=== PATIENT | female | born 1960 | race Caucasian/White ===

== ENCOUNTER → 2017-01-14 | Outpatient (CLI) | payer OTHER ==
[2015-05-31 11:05] VITALS: BP 156/82
--- NOTE | 2017-01-14 13:57 | RAD ---
DATE: January 14, 2017 EXAM: DIGITAL DIAGNOSTIC BILATERAL, SONOGRAPHY BREAST LEFT HISTORY: Palpable left breast lump for years. COMPARISON: November 20, 2010 This study was interpreted with the benefit of Computerized Aided Detection (CAD). FINDINGS: The breast parenchyma is primarily fatty replaced. There are no dominant suspicious masses, suspicious microcalcifications or evidence of architectural distortion. A metallic BB is placed on the medial aspect of the left breast just superior to the nipple line to sean the palpable lump as indicated by the patient. No focal mammographic abnormality is seen here. LEFT BREAST SONOGRAPHY: High-resolution sonography of the palpable lump as indicated by patient at the 10:00 position 8 cm from nipple was performed. No focal sonographic abnormality of the left breast is seen. There is a rib in this area which the patient may be feeling. IMPRESSION: No radiographic indicators for malignancy. Palpable lump may represent underlying rib. BI-RADS CATEGORY: 1 NEGATIVE RECOMMENDED FOLLOW-UP: 12M 12 MONTH FOLLOW-UP PQRS compliance statement: Patient information was entered into a reminder system with a target due date January 15, 2018 for the next mammogram. Mammography is a sensitive method for finding small breast cancers, but it does not detect them all and is not a substitute for careful clinical examination. A negative mammogram does not negate a clinically suspicious finding and should not result in delay in biopsying a clinically suspicious abnormality. "Our facility is accredited by the [employer] Mammography Program." The patient's breast density may affect the ability of mammography to detect breast cancer. There are 4 categories of breast density, A, B, C and D. Breast density A means that most of the breast tissue is replaced with adipose tissue and therefore is not dense. Breast density B means that the breast tissue is mildly dense and scattered. Breast density C means that the breast tissue is heterogeneously dense. Breast density D means that the breast tissue is very dense. Breast densities especially C and D may decrease the sensitivity of mammography to detect breast cancer. Therefore, the patient may benefit from 3-D breast mammography (3D breast tomography) as a part of their screening mammogram. Insurance may or may not pay for this additional imaging. The patient's breast density based on today's mammogram is category A.
== END | disposition home or self-care (01) ==
LOC: MAMMO 12:40
PROVIDERS: ATTEND Family Medicine
DX: N63 Unspecified lump in breast (principal)
CPT/HCPCS: 76641; G0204; 77066

== ENCOUNTER 2020-02-04 11:39 | Observation (INO) | payer OTHER ==
[~2020-02-04] VITALS: Ht 152.4 cm; Wt 68.9 kg
[2020-02-04] MEDS ORDERED: fentaNYL PF VIAL 100 MCG/2 ML VIAL IV ONE ×2 (12:15→14:30)
[2020-02-04] MEDS ORDERED: ONDANSETRON PF 4 MG/2 ML VIAL. IV ONE (12:15)
[2020-02-04 12:39] LABS: BASO # 0.1 x10^3/uL (0.0-0.2); BASO % 1 % (0-3); EOS # 0.2 x10^3/uL (0.0-0.7); EOS % 2 % (0-3); HEMATOCRIT 45.1 % (36.0-47.0); HEMOGLOBIN 16.2 g/dL (12.0-15.5); LYMPH # 2.2 x10^3/uL (1.0-4.8); LYMPH % 24 % (24-48); MEAN CORPUSCULAR HEMOGLOBIN 33 pg (25-35); MEAN CORPUSCULAR HGB CONC 36 g/dL (31-37); MEAN CORPUSCULAR VOLUME 91 fL (79-100); MONO # 0.8 x10^3/uL (0.0-1.1); MONO % 8 % (0-9); NEUT # 6.2 x10^3/uL (1.8-7.7); NEUT % 66 % (31-73); PLATELET COUNT 217 x10^3/uL (140-400); RED BLOOD COUNT 4.98 x10^6/uL (3.50-5.40); RED CELL DISTRIBUTION WIDTH 12.5 % (11.5-14.5); WHITE BLOOD COUNT 9.5 x10^3/uL (4.0-11.0)
[2020-02-04 12:41] LABS: BILIRUBIN,URINE NEGATIVE (NEG); CLARITY,URINE CLEAR; COLOR,URINE YELLOW; NITRITE,URINE NEGATIVE (NEG); PH,URINE 7.5 (<5.0-8.0); PROTEIN,URINE 100 mg/dL (NEG-TRACE); UROBILINOGEN,URINE 0.2 mg/dL (0.2 mg/dL)
[2020-02-04 12:55] LABS: CALCIUM 9.6 mg/dL (8.5-10.1); CREATININE 0.8 mg/dL (0.6-1.0); GFR 73.4; POTASSIUM 3.9 mmol/L (3.5-5.1)
[2020-02-04] MEDS ORDERED: IOHEXOL 300 MG/ML 100ML VIAL. IV ONE (13:00)
[2020-02-04 13:01] LABS: ALBUMIN 4.1 g/dL (3.4-5.0); ALBUMIN/GLOBULIN RATIO 1.4 (1.0-1.7); MAGNESIUM 2.2 mg/dL (1.8-2.4)
[2020-02-04 13:04] LABS: HYALINE CASTS, URINE MODERATE /HPF; SQUAMOUS EPITHELIAL CELL,UR FEW /LPF
[2020-02-04 13:06] LABS: BACTERIA,URINE 0 /HPF (0-FEW)
[2020-02-04] MEDS ORDERED: CONTRAST GIVEN. MC PRN (13:15)
--- NOTE | 2020-02-04 13:34 | RAD ---
Examination: CT abdomen pelvis with IV contrast HISTORY: History of abdominal pain COMPARISON: None available TECHNIQUE: Axial CT images of the abdomen pelvis were performed with IV contrast. Coronal and sagittal reformats are performed Exposure: One or more of the following individualized dose reduction techniques were utilized for this examination: 1. Automated exposure control 2. Adjustment of the mA and/or kV according to patient size 3. Use of iterative reconstruction technique FINDINGS: Minimal bibasilar lung atelectasis. No evidence of free air identified in the abdomen The liver, spleen, adrenals grossly appears unremarkable the gallbladder is mildly distended. The stomach is mildly distended. The visualized pancreas grossly appears unremarkable. Small bowel is nondilated. The appendix is normal. Feces and gas noted in the colon Few sigmoid colon diverticulosis identified. Moderate right hydronephrosis and hydroureter identified with a 5 mm calculus identified in the distal right ureter with mild surrounding fat stranding. The caliber of the aorta grossly appears unremarkable. Mild degenerative changes thoracal lumbar spine. IMPRESSION: 1. 5 mm calculus identified in the distal right ureter causing moderate right-sided hydronephrosis and hydroureter. Electronically signed by: Laron Quezada MD (02/04/2020 1:31 PM) [id number]
--- NOTE | 2020-02-04 14:07 | PHYS DOC ---
Past Medical History Past Medical History: Anxiety, Depression, Diabetes-Type II, Hypertension Additional Past Medical Histor: "fatty liver" Past Surgical History: Hysterectomy, Other Additional Past Surgical Histo: R FOOT Smoking Status: Current Every Day Smoker Alcohol Use: None Drug Use: None General Adult EDM: Chief Complaint: ABDOMINAL PAIN HPI: HPI: Patient is a 59-year-old female with a history of diabetes and hypertension who has recently been noncompliant with her blood pressure medicine who presents with a several day history of severe right sided lower abdominal discomfort. She says the pain radiates to her back. She denies any chest pain shortness of breath. She has had a headache. She denies any nausea or vomiting. She is not had any visual changes or other lateralizing neurologic weakness. [] Review of Systems: Review of Systems: Constitutional: Denies fever or chills. [] Eyes: Denies change in visual acuity. [] HENT: Denies nasal congestion or sore throat. [] Respiratory: Denies cough or shortness of breath. [] Cardiovascular: Denies chest pain or edema. [] GI: Denies abdominal pain, nausea, vomiting, bloody stools or diarrhea. [] : Denies dysuria. [] Musculoskeletal: Denies back pain or joint pain. [] Integument: Denies rash. [] Neurologic: Denies headache, focal weakness or sensory changes. [] Endocrine: Denies polyuria or polydipsia. [] Lymphatic: Denies swollen glands. [] Psychiatric: Denies depression or anxiety. [] Heart Score: Risk Factors: Risk Factors: DM, Current or recent (<one month) smoker, HTN, HLP, family history of CAD, obesity. Risk Scores: Score 0 - 3: 2.5% MACE over next 6 weeks - Discharge Home Score 4 - 6: 20.3% MACE over next 6 weeks - Admit for Clinical Observation Score 7 - 10: 72.7% MACE over next 6 weeks - Early Invasive Strategies Current Medications: Current Medications Medications (Trade) Dose Ordered Sig/Lauren Start Time Stop Time Status Last Admin Dose Admin Fentanyl Citrate (Fentanyl 2ml Vial) 50 mcg 1X ONCE 02/04/20 12:15 02/04/20 12:16 DC 02/04/20 12:29 50 MCG Info (CONTRAST GIVEN -- Rx MONITORING) 1 each PRN DAILY PRN 02/04/20 13:15 7/20/20 13:14 Iohexol (Omnipaque 300 Mg/ml) 75 ml 1X ONCE 02/04/20 13:00 02/04/20 13:03 DC 02/04/20 13:22 75 ML Nicardipine HCl 50 mg/Sodium Chloride 250 ml @ 25 mls/hr CONT PRN 02/04/20 12:15 02/04/20 13:41 37.5 MLS/HR Ondansetron HCl (Zofran) 4 mg 1X ONCE 02/04/20 12:15 02/04/20 12:16 DC 02/04/20 12:29 4 MG Allergies: Allergies: Allergies Coded Allergies Type Severity Reaction Last Updated Verified morphine Allergy Intermediate itchy 05/31/15 No Physical Exam: PE: Constitutional: Well developed, well nourished, moderate distress, non-toxic appearance. [] HENT: Normocephalic, atraumatic, bilateral external ears normal, oropharynx moist, no oral exudates, nose normal. [] Eyes: PERRLA, EOMI, conjunctiva normal, no discharge. [] Neck: Normal range of motion, no tenderness, supple, no stridor. [] Cardiovascular:Heart rate regular rhythm, no murmur [] Lungs & Thorax: Bilateral breath sounds clear to auscultation [] Abdomen: Bowel sounds normal, soft, right lower quadrant tender to palp no rebound or guarding, no masses, no pulsatile masses. [] Skin: Warm, dry, no erythema, no rash. [] Back: No tenderness, no CVA tenderness. [] Extremities: No tenderness, no cyanosis, no clubbing, ROM intact, no edema. [] Neurologic: Alert and oriented X 3, normal motor function, normal sensory function, no focal deficits noted. [] Psychologic: Extremely anxious l. [] Current Patient Data: Labs: Laboratory Tests Test 02/04/20 11:51 02/04/20 12:13 Urine Collection Type Unknown Urine Color Yellow Urine Clarity Clear Urine pH 7.5 (<5.0-8.0) Urine Specific [place] 1.015 (1.000-1.030) Urine Protein 100 mg/dL (NEG-TRACE) Urine Glucose (UA) Negative mg/dL (NEG) Urine Ketones (Stick) Negative mg/dL (NEG) Urine Blood Negative (NEG) Urine Nitrite Negative (NEG) Urine Bilirubin Negative (NEG) Urine Urobilinogen Dipstick 0.2 mg/dL (0.2 mg/dL) Urine Leukocyte Esterase Negative (NEG) Urine RBC 6-10 /HPF (0-2) Urine WBC 5-10 /HPF (0-4) Urine Squamous Epithelial Cells Few /LPF Urine Bacteria 0 /HPF (0-FEW) Urine Hyaline Casts Moderate /HPF Urine Mucus Mod /LPF White Blood Count 9.5 x10^3/uL (4.0-11.0) Red Blood Count 4.98 x10^6/uL (3.50-5.40) Hemoglobin 16.2 g/dL (12.0-15.5) H Hematocrit 45.1 % (36.0-47.0) Mean Corpuscular Volume 91 fL (79-100) Mean Corpuscular Hemoglobin 33 pg (25-35) Mean Corpuscular Hemoglobin Concent 36 g/dL (31-37) Red Cell Distribution Width 12.5 % (11.5-14.5) Platelet Count 217 x10^3/uL (140-400) Neutrophils (%) (Auto) 66 % (31-73) Lymphocytes (%) (Auto) 24 % (24-48) Monocytes (%) (Auto) 8 % (0-9) Eosinophils (%) (Auto) 2 % (0-3) Basophils (%) (Auto) 1 % (0-3) Neutrophils # (Auto) 6.2 x10^3/uL (1.8-7.7) Lymphocytes # (Auto) 2.2 x10^3/uL (1.0-4.8) Monocytes # (Auto) 0.8 x10^3/uL (0.0-1.1) Eosinophils # (Auto) 0.2 x10^3/uL (0.0-0.7) Basophils # (Auto) 0.1 x10^3/uL (0.0-0.2) Sodium Level 141 mmol/L (136-145) Potassium Level 3.9 mmol/L (3.5-5.1) Chloride Level 103 mmol/L (98-107) Carbon Dioxide Level 26 mmol/L (21-32) Anion Gap 12 (6-14) Blood Urea Nitrogen 10 mg/dL (7-20) Creatinine 0.8 mg/dL (0.6-1.0) Estimated GFR (Cockcroft-Gault) 73.4 BUN/Creatinine Ratio 13 (6-20) Glucose Level 136 mg/dL (70-99) H Calcium Level 9.6 mg/dL (8.5-10.1) Magnesium Level 2.2 mg/dL (1.8-2.4) Total Bilirubin 1.0 mg/dL (0.2-1.0) Aspartate Amino Transferase (AST) 20 U/L (15-37) Alanine Aminotransferase (ALT) 33 U/L (14-59) Alkaline Phosphatase 125 U/L (46-116) H Troponin I Quantitative < 0.017 ng/mL (0.000-0.055) Total Protein 7.0 g/dL (6.4-8.2) Albumin 4.1 g/dL (3.4-5.0) Albumin/Globulin Ratio 1.4 (1.0-1.7) Laboratory Tests 02/04/20 12:13 Laboratory Tests 02/04/20 12:13 Vital Signs: Vital Signs Date Time Temp Pulse Resp B/P (MAP) Pulse Ox O2 Delivery O2 Flow Rate FiO2 02/04/20 13:41 65 177/97 (123) 02/04/20 12:29 16 Room Air 02/04/20 11:39 98.1 97 98.1 EKG: EKG: [] Radiology/Procedures: Radiology/Procedures: []REASON: severe abdominal pain PROCEDURE: CT ABD PELV W/ IV CONTRST ONLY Examination: CT abdomen pelvis with IV contrast HISTORY: History of abdominal pain COMPARISON: None available TECHNIQUE: Axial CT images of the abdomen pelvis were performed with IV contrast. Coronal and sagittal reformats are performed Exposure: One or more of the following individualized dose reduction techniques were utilized for this examination: 1. Automated exposure control 2. Adjustment of the mA and/or kV according to patient size 3. Use of iterative reconstruction technique FINDINGS: Minimal bibasilar lung atelectasis. No evidence of free air identified in the abdomen The liver, spleen, adrenals grossly appears unremarkable the gallbladder is mildly distended. The stomach is mildly distended. The visualized pancreas grossly appears unremarkable. Small bowel is nondilated. The appendix is normal. Feces and gas noted in the colon Few sigmoid colon diverticulosis identified. Moderate right hydronephrosis and hydroureter identified with a 5 mm calculus identified in the distal right ureter with mild surrounding fat stranding. The caliber of the aorta grossly appears unremarkable. Mild degenerative changes thoracal lumbar spine. IMPRESSION: 1. 5 mm calculus identified in the distal right ureter causing moderate right-sided hydronephrosis and hydroureter. Course & Med Decision Making: Course & Med Decision Making Pertinent Labs and Imaging studies reviewed. (See chart for details) [ED course: Evaluation reveals a 59-year-old medically noncompliant female whose blood pressure was 255/130 on arrival. She was started on a nicardipine drip which improved her blood pressure to 160/80. She was also given IV fluids, fentanyl 50 mcg, Flomax 0.8 mg and Toradol 30 mg IV for pain which did alleviate the symptoms of renal colic. I believe the patient will need to be watched overnight given the severity of her blood pressure. CRITICAL CARE: Time spent was 35 minutes. This includes medical management, evaluation, reevaluation, discussion with consultants and family. Critical Care does NOT include time spent on separately billed procedures. ] Dragon Disclaimer: Dragon Disclaimer: This electronic medical record was generated, in whole or in part, using a voice recognition dictation system. Departure Departure Impression: Primary Impression: Hypertensive emergency without congestive heart failure Additional Impressions: Renal colic on right side Ureteral stone with hydronephrosis Disposition: ADMITTED INPATIENT Admitting Physician: ANTON Condition: IMPROVED Referrals: SANTI ORTEGA MD (PCP) Justicifation of Admission Dx: Justifications for Admission: Justification of Admission Dx: Yes Hypertension: Cresendo Worsening of Sym RUDDY MANCIA DO Feb 04, 2020 14:07
[2020-02-04] MEDS ORDERED: fentaNYL PF VIAL 100 MCG/2 ML VIAL IV PRN (14:30)
[2020-02-04] MEDS ORDERED: TAMSULOSIN 0.4 MG CAP.ER.24H. PO ONE (14:30)
[2020-02-04] MEDS ORDERED: ACETAMINOPHEN 325 MG TABLET. PO PRN (14:30)
[2020-02-04] MEDS ORDERED: KETOROLAC 30 MG/ML VIAL. IV ONE (14:30)
[2020-02-04] MEDS ORDERED: ONDANSETRON PF 4 MG/2 ML VIAL. IV PRN (14:30)
[2020-02-04 16:30] VITALS: BP 120/63
--- NOTE | 2020-02-04 16:37 | PDOC1 ---
History and Physical Date of Admission: Date of Admission DATE: 02/04/20 TIME: 16:36 Chief Complaint: Chief Complain: Right flank pain History of Present Illness: HPI: 59-year-old female with a history of diabetes and hypertension who has recently been noncompliant with her blood pressure medicine who presents with a several day history of severe right sided lower abdominal discomfort, 10 out of 10, radiates to her right flank, aching in nature, and denies any associated shortness of breath or nausea vomiting she does complain of headaches. There are no exacerbating or alleviating factors. Denies hematuria, diarrhea, chest pain, or vision changes ED course: Patient had elevated blood pressures in the systolics of 200s. Therefore, she was started on Cardizem drip and she was transferred to [facility] for close management. Past Medical/Surgical History: PMH/PSH: Past Medical History: Anxiety, Depression, Diabetes-Type II, Hypertension, "fatty liver" Past Surgical History: Hysterectomy, R FOOT Allergies: Allergies: Coded Allergies: morphine (Unverified Allergy, Intermediate, itchy , 05/31/15) Family History: Family History: No history of nephrolithiasis in family Social History: Social History: Smoking Status: Denies current smoking. Patient states that she did smoke a few years back when she i was dealing with a in the family Drug Use: None Current Medications: Current Medications Current Medications Fentanyl Citrate (Fentanyl 2ml Vial) 50 mcg 1X ONCE IV Last administered on 02/04/20at 12:29; Start 02/04/20 at 12:15; Stop 02/04/20 at 12:16; Status DC Ondansetron HCl (Zofran) 4 mg 1X ONCE IV Last administered on 02/04/20at 12:29; Start 02/04/20 at 12:15; Stop 02/04/20 at 12:16; Status DC Nicardipine HCl 50 mg/Sodium Chloride 250 ml @ 25 mls/hr CONT PRN IV SEE I/O RECORD Last administered on 02/04/20at 13:41; Start 02/04/20 at 12:15 Iohexol (Omnipaque 300 Mg/ml) 75 ml 1X ONCE IV Last administered on 02/04/20at 13:22; Start 02/04/20 at 13:00; Stop 02/04/20 at 13:03; Status DC Info (CONTRAST GIVEN -- Rx MONITORING) 1 each PRN DAILY PRN MC SEE COMMENTS; Start 02/04/20 at 13:15; Stop 02/06/20 at 13:14 Ketorolac Tromethamine (Toradol 30mg Vial) 30 mg 1X ONCE IV Last administered on 02/04/20at 14:38; Start 02/04/20 at 14:30; Stop 02/04/20 at 14:31; Status DC Fentanyl Citrate (Fentanyl 2ml Vial) 50 mcg 1X ONCE IV Last administered on 02/04/20at 14:38; Start 02/04/20 at 14:30; Stop 02/04/20 at 14:31; Status DC Tamsulosin HCl (Flomax) 0.8 mg 1X ONCE PO Last administered on 02/04/20at 14:38; Start 02/04/20 at 14:30; Stop 02/04/20 at 14:31; Status DC Ondansetron HCl (Zofran) 4 mg PRN Q8HRS PRN IV NAUSEA/VOMITING; Start 02/04/20 at 14:30; Stop 02/05/20 at 14:29 Fentanyl Citrate (Fentanyl 2ml Vial) 50 mcg PRN Q1HR PRN IV PAIN; Start 02/04/20 at 14:30; Stop 02/05/20 at 14:29 Acetaminophen (Tylenol) 650 mg PRN Q4HRS PRN PO FEVER > 100.3'F; Start 02/04/20 at 14:30; Stop 02/05/20 at 14:29 ROS: Review of Systems Review of System REVIEW OF SYSTEMS: GENERAL: Denies weakness SKIN: No bruising, hair changes or rashes. EYES: No blurred, double or loss of vision. NOSE AND THROAT: No history of nosebleeds, hoarseness or sore throat. HEART: No history of palpitations, chest pain or shortness of breath on exertion. LUNGS: Denies cough, hemoptysis, wheezing or shortness of breath. GASTROINTESTINAL: Denies changes in appetite, nausea, vomiting, diarrhea or constipation. GENITOURINARY: No history of frequency, urgency, hesitancy or nocturia. NEUROLOGIC: Denies history of numbness, tingling, or tremor. PSYCHIATRIC: No history of panic, anxiety or depression. ENDOCRINE: No history of heat or cold intolerance, polyuria or polydipsia. EXTREMITIES: Denies joint pain, pain on walking or stiffness. Physical Exam: Vital Signs: Vital Signs Date Time Temp Pulse Resp B/P (MAP) Pulse Ox O2 Delivery O2 Flow Rate FiO2 02/04/20 15:20 76 104/57 (73) 93 Room Air 02/04/20 12:29 16 02/04/20 11:39 98.1 98.1 Physcial Exam: GEN: No apparent distress. Alert and oriented HEENT: Normal cephalic, atraumatic, external auditory canals are patent EYES: Extraocular muscles are intact, pupil are equally round and reactive to light and accommodation MUSCULOSKELETAL: Well developed , well nourished, good range of motion ENDOCRINE: No thyromegaly was palpated LYMPHATICS: No cervical chain or axillary nodes were noted HEMATOPOIETIC: No bruising NECK: Supple, no JVD, no thyromegaly was noted LUNGS: Clear to auscultation in all lung weller without rhonchi or wheezing HEART: RRR, S!, S2 present. Peripheral pulses intact, no obvious murmurs noted ABDOMEN: Soft, nontender. Positive bowel sounds, no organomegaly, normal bowel sounds EXTREMITIES: Without clubbing, cyanosis, or edema. Pedal pulses intact. Negative Homans sign NEUROLOGIC: Normal speech and tone. A&O x 3, moves all extremities, no ob vious focal deficits PSYCHIATRIC: Normal affect, normal mood. Stable SKIN: No ulcerations or rashes, good skin turgor, no jaundice VASCULAR: Good capillary refill, neurovascular bundle appears to be intact Labs: Labs: Laboratory Tests Test 02/04/20 11:51 02/04/20 12:13 Urine Collection Type Unknown Urine Color Yellow Urine Clarity Clear Urine pH 7.5 (<5.0-8.0) Urine Specific [place] 1.015 (1.000-1.030) Urine Protein 100 mg/dL (NEG-TRACE) Urine Glucose (UA) Negative mg/dL (NEG) Urine Ketones (Stick) Negative mg/dL (NEG) Urine Blood Negative (NEG) Urine Nitrite Negative (NEG) Urine Bilirubin Negative (NEG) Urine Urobilinogen Dipstick 0.2 mg/dL (0.2 mg/dL) Urine Leukocyte Esterase Negative (NEG) Urine RBC 6-10 /HPF (0-2) Urine WBC 5-10 /HPF (0-4) Urine Squamous Epithelial Cells Few /LPF Urine Bacteria 0 /HPF (0-FEW) Urine Hyaline Casts Moderate /HPF Urine Mucus Mod /LPF White Blood Count 9.5 x10^3/uL (4.0-11.0) Red Blood Count 4.98 x10^6/uL (3.50-5.40) Hemoglobin 16.2 g/dL (12.0-15.5) Hematocrit 45.1 % (36.0-47.0) Mean Corpuscular Volume 91 fL (79-100) Mean Corpuscular Hemoglobin 33 pg (25-35) Mean Corpuscular Hemoglobin Concent 36 g/dL (31-37) Red Cell Distribution Width 12.5 % (11.5-14.5) Platelet Count 217 x10^3/uL (140-400) Neutrophils (%) (Auto) 66 % (31-73) Lymphocytes (%) (Auto) 24 % (24-48) Monocytes (%) (Auto) 8 % (0-9) Eosinophils (%) (Auto) 2 % (0-3) Basophils (%) (Auto) 1 % (0-3) Neutrophils # (Auto) 6.2 x10^3/uL (1.8-7.7) Lymphocytes # (Auto) 2.2 x10^3/uL (1.0-4.8) Monocytes # (Auto) 0.8 x10^3/uL (0.0-1.1) Eosinophils # (Auto) 0.2 x10^3/uL (0.0-0.7) Basophils # (Auto) 0.1 x10^3/uL (0.0-0.2) Sodium Level 141 mmol/L (136-145) Potassium Level 3.9 mmol/L (3.5-5.1) Chloride Level 103 mmol/L (98-107) Carbon Dioxide Level 26 mmol/L (21-32) Anion Gap 12 (6-14) Blood Urea Nitrogen 10 mg/dL (7-20) Creatinine 0.8 mg/dL (0.6-1.0) Estimated GFR (Cockcroft-Gault) 73.4 BUN/Creatinine Ratio 13 (6-20) Glucose Level 136 mg/dL (70-99) Calcium Level 9.6 mg/dL (8.5-10.1) Magnesium Level 2.2 mg/dL (1.8-2.4) Total Bilirubin 1.0 mg/dL (0.2-1.0) Aspartate Amino Transf (AST/SGOT) 20 U/L (15-37) Alanine Aminotransferase (ALT/SGPT) 33 U/L (14-59) Alkaline Phosphatase 125 U/L (46-116) Troponin I Quantitative < 0.017 ng/mL (0.000-0.055) Total Protein 7.0 g/dL (6.4-8.2) Albumin 4.1 g/dL (3.4-5.0) Albumin/Globulin Ratio 1.4 (1.0-1.7) Laboratory Tests Test 02/04/20 11:51 02/04/20 12:13 Urine Collection Type Unknown Urine Color Yellow Urine Clarity Clear Urine pH 7.5 (<5.0-8.0) Urine Specific [place] 1.015 (1.000-1.030) Urine Protein 100 mg/dL (NEG-TRACE) Urine Glucose (UA) Negative mg/dL (NEG) Urine Ketones (Stick) Negative mg/dL (NEG) Urine Blood Negative (NEG) Urine Nitrite Negative (NEG) Urine Bilirubin Negative (NEG) Urine Urobilinogen Dipstick 0.2 mg/dL (0.2 mg/dL) Urine Leukocyte Esterase Negative (NEG) Urine RBC 6-10 /HPF (0-2) Urine WBC 5-10 /HPF (0-4) Urine Squamous Epithelial Cells Few /LPF Urine Bacteria 0 /HPF (0-FEW) Urine Hyaline Casts Moderate /HPF Urine Mucus Mod /LPF White Blood Count 9.5 x10^3/uL (4.0-11.0) Red Blood Count 4.98 x10^6/uL (3.50-5.40) Hemoglobin 16.2 g/dL (12.0-15.5) Hematocrit 45.1 % (36.0-47.0) Mean Corpuscular Volume 91 fL (79-100) Mean Corpuscular Hemoglobin 33 pg (25-35) Mean Corpuscular Hemoglobin Concent 36 g/dL (31-37) Red Cell Distribution Width 12.5 % (11.5-14.5) Platelet Count 217 x10^3/uL (140-400) Neutrophils (%) (Auto) 66 % (31-73) Lymphocytes (%) (Auto) 24 % (24-48) Monocytes (%) (Auto) 8 % (0-9) Eosinophils (%) (Auto) 2 % (0-3) Basophils (%) (Auto) 1 % (0-3) Neutrophils # (Auto) 6.2 x10^3/uL (1.8-7.7) Lymphocytes # (Auto) 2.2 x10^3/uL (1.0-4.8) Monocytes # (Auto) 0.8 x10^3/uL (0.0-1.1) Eosinophils # (Auto) 0.2 x10^3/uL (0.0-0.7) Basophils # (Auto) 0.1 x10^3/uL (0.0-0.2) Sodium Level 141 mmol/L (136-145) Potassium Level 3.9 mmol/L (3.5-5.1) Chloride Level 103 mmol/L (98-107) Carbon Dioxide Level 26 mmol/L (21-32) Anion Gap 12 (6-14) Blood Urea Nitrogen 10 mg/dL (7-20) Creatinine 0.8 mg/dL (0.6-1.0) Estimated GFR (Cockcroft-Gault) 73.4 BUN/Creatinine Ratio 13 (6-20) Glucose Level 136 mg/dL (70-99) Calcium Level 9.6 mg/dL (8.5-10.1) Magnesium Level 2.2 mg/dL (1.8-2.4) Total Bilirubin 1.0 mg/dL (0.2-1.0) Aspartate Amino Transf (AST/SGOT) 20 U/L (15-37) Alanine Aminotransferase (ALT/SGPT) 33 U/L (14-59) Alkaline Phosphatase 125 U/L (46-116) Troponin I Quantitative < 0.017 ng/mL (0.000-0.055) Total Protein 7.0 g/dL (6.4-8.2) Albumin 4.1 g/dL (3.4-5.0) Albumin/Globulin Ratio 1.4 (1.0-1.7) Assessment/Plan Assessment/Plan Hypertensive crisis Erythrocytosis due to likely volume depletion Medical noncompliance Right ureterolithiasis with hydronephrosis Diabetes Hypertension Elevated alkaline phosphatase suggestive for fatty liver disease Admit to [facility] Continue IV fluids Continue Cardene drip titrate blood pressures between 160-180 systolic Titrated off Cardizem drip and keep labetalol as needed for systolic goals between 140-1 80 Strain urine for kidney stones Strict I's and O's Lovenox for DVT prophylaxis Regular diet Full code Discussed with RN Dispo Home when BP is controlled Justicifation of Admission Dx: Justifications for Admission: Justification of Admission Dx: Yes Hypertension: Cres[place] Worsening of Sym EMMA SETH MD Feb 04, 2020 16:37
[2020-02-04] MEDS ORDERED: KETOROLAC 30 MG/ML VIAL. IVP PRN (16:45)
[2020-02-04] MEDS ORDERED: IV NORMAL SALINE 1000ML BAG 1,000 ML IV ONE (16:45)
[2020-02-04] MEDS ORDERED: DEXTROSE 50% 25 GM / 50ML DISP.SYRIN. IV PRN (16:45)
[2020-02-04] MEDS: INSULIN LISPRO 300 UNITS/3 ML VIAL. SQ SCH (17:00)
[2020-02-04] MEDS ORDERED: ENOXAPARIN 40 MG/0.4 ML SYRINGE. SQ SCH (18:00)
[2020-02-04] MEDS ORDERED: METF100010 PO (18:27)
[2020-02-04] MEDS ORDERED: CITA10TA4 PO (18:27)
[2020-02-04 18:30] VITALS: BP 126/68
[2020-02-04] MEDS ORDERED: ATOR10TA60 PO (19:07)
[2020-02-04] MEDS ORDERED: LABETALOL 20 MG/4 ML DISP.SYRIN. IVP PRN (19:15)
[2020-02-04] MEDS ORDERED: amLODIPine BESYLATE 10 MG TABLET PO SCH (21:00)
[2020-02-04] MEDS ORDERED: ATORVASTATIN CALCIUM 10 MG TABLET. PO SCH (21:00)
[2020-02-04 23:00] VITALS: BP 161/75
[2020-02-05 03:50] VITALS: BP 156/81
[2020-02-05 07:00] VITALS: BP 153/79
[2020-02-05 07:34] LABS: BASO % 0 % (0-3); EOS # 0.1 x10^3/uL (0.0-0.7); EOS % 1 % (0-3); HEMATOCRIT 41.9 % (36.0-47.0); HEMOGLOBIN 15.2 g/dL (12.0-15.5); LYMPH # 1.7 x10^3/uL (1.0-4.8); LYMPH % 21 % (24-48); MEAN CORPUSCULAR HEMOGLOBIN 33 pg (25-35); MEAN CORPUSCULAR HGB CONC 36 g/dL (31-37); MEAN CORPUSCULAR VOLUME 90 fL (79-100); MONO # 0.7 x10^3/uL (0.0-1.1); MONO % 8 % (0-9); NEUT # 5.6 x10^3/uL (1.8-7.7); NEUT % 69 % (31-73); PLATELET COUNT 184 x10^3/uL (140-400); RED BLOOD COUNT 4.65 x10^6/uL (3.50-5.40); RED CELL DISTRIBUTION WIDTH 12.4 % (11.5-14.5); WHITE BLOOD COUNT 8.1 x10^3/uL (4.0-11.0)
[2020-02-05] MEDS: INSULIN LISPRO 300 UNITS/3 ML VIAL. SQ SCH (08:00)
[2020-02-05 08:15] LABS: ALBUMIN 3.4 g/dL (3.4-5.0); ALBUMIN/GLOBULIN RATIO 1.1 (1.0-1.7); CALCIUM 8.6 mg/dL (8.5-10.1); CREATININE 0.7 mg/dL (0.6-1.0); GFR 85.6; POTASSIUM 3.5 mmol/L (3.5-5.1); TOTAL BILIRUBIN 1.3 mg/dL (0.2-1.0); TOTAL PROTEIN 6.5 g/dL (6.4-8.2)
[2020-02-05] MEDS ORDERED: CITALOPRAM 10 MG TABLET. PO SCH (09:00)
[2020-02-05] MEDS ORDERED: LISINOPRIL 20 MG TABLET PO SCH (09:00)
[2020-02-05 09:28] VITALS: BP 153/79
[2020-02-05] MEDS ORDERED: LISI-130 PO (09:44)
[2020-02-05] MEDS ORDERED: AMLO10TA8 PO (09:44)
--- NOTE | 2020-02-05 09:49 | PDOC3 ---
Discharge Summary Visit Information Date of Admission: Feb 04, 2020 Date of Discharge: Feb 05, 2020 Final Diagnosis Problems Medical Problems: (1) Hypertensive emergency without congestive heart failure Status: Acute (2) Malignant hypertension Status: Acute (3) Renal colic on right side Status: Acute (4) Ureteral stone with hydronephrosis Status: Acute Brief Hospital Course Allergies Allergies Coded Allergies Type Severity Reaction Last Updated Verified morphine Allergy Intermediate itchy 05/31/15 No Vital Signs GENERAL: No apparent distress. Alert and oriented. HEENT: Head normocephalic, atraumatic. NECK: Supple LUNGS: Clear to auscultation. HEART: RRR, S1, S2 present, pulses intact ABDOMEN: Soft, positive bowel sounds. EXTREMITIES: No cyanosis or edema. NEUROLOGIC: Normal speech, normal tone PSYCHIATRIC: Normal affect, normal mood. SKIN: No ulceration. Vital Signs Date Time Temp Pulse Resp B/P (MAP) Pulse Ox O2 Delivery O2 Flow Rate FiO2 02/05/20 09:28 68 153/79 02/05/20 07:00 98.4 16 97 Room Air 98.4 Lab Results Laboratory Tests Test 02/04/20 11:51 02/04/20 12:13 02/05/20 07:10 02/05/20 07:26 Urine Collection Type Unknown Urine Color Yellow Urine Clarity Clear Urine pH 7.5 (<5.0-8.0) Urine Specific [place] 1.015 (1.000-1.030) Urine Protein 100 mg/dL (NEG-TRACE) Urine Glucose (UA) Negative mg/dL (NEG) Urine Ketones (Stick) Negative mg/dL (NEG) Urine Blood Negative (NEG) Urine Nitrite Negative (NEG) Urine Bilirubin Negative (NEG) Urine Urobilinogen Dipstick 0.2 mg/dL (0.2 mg/dL) Urine Leukocyte Esterase Negative (NEG) Urine RBC 6-10 /HPF (0-2) Urine WBC 5-10 /HPF (0-4) Urine Squamous Epithelial Cells Few /LPF Urine Bacteria 0 /HPF (0-FEW) Urine Hyaline Casts Moderate /HPF Urine Mucus Mod /LPF White Blood Count 9.5 x10^3/uL (4.0-11.0) 8.1 x10^3/uL (4.0-11.0) Red Blood Count 4.98 x10^6/uL (3.50-5.40) 4.65 x10^6/uL (3.50-5.40) Hemoglobin 16.2 g/dL (12.0-15.5) 15.2 g/dL (12.0-15.5) Hematocrit 45.1 % (36.0-47.0) 41.9 % (36.0-47.0) Mean Corpuscular Volume 91 fL (79-100) 90 fL (79-100) Mean Corpuscular Hemoglobin 33 pg (25-35) 33 pg (25-35) Mean Corpuscular Hemoglobin Concent 36 g/dL (31-37) 36 g/dL (31-37) Red Cell Distribution Width 12.5 % (11.5-14.5) 12.4 % (11.5-14.5) Platelet Count 217 x10^3/uL (140-400) 184 x10^3/uL (140-400) Neutrophils (%) (Auto) 66 % (31-73) 69 % (31-73) Lymphocytes (%) (Auto) 24 % (24-48) 21 % (24-48) Monocytes (%) (Auto) 8 % (0-9) 8 % (0-9) Eosinophils (%) (Auto) 2 % (0-3) 1 % (0-3) Basophils (%) (Auto) 1 % (0-3) 0 % (0-3) Neutrophils # (Auto) 6.2 x10^3/uL (1.8-7.7) 5.6 x10^3/uL (1.8-7.7) Lymphocytes # (Auto) 2.2 x10^3/uL (1.0-4.8) 1.7 x10^3/uL (1.0-4.8) Monocytes # (Auto) 0.8 x10^3/uL (0.0-1.1) 0.7 x10^3/uL (0.0-1.1) Eosinophils # (Auto) 0.2 x10^3/uL (0.0-0.7) 0.1 x10^3/uL (0.0-0.7) Basophils # (Auto) 0.1 x10^3/uL (0.0-0.2) 0.0 x10^3/uL (0.0-0.2) Sodium Level 141 mmol/L (136-145) 141 mmol/L (136-145) Potassium Level 3.9 mmol/L (3.5-5.1) 3.5 mmol/L (3.5-5.1) Chloride Level 103 mmol/L (98-107) 104 mmol/L (98-107) Carbon Dioxide Level 26 mmol/L (21-32) 27 mmol/L (21-32) Anion Gap 12 (6-14) 10 (6-14) Blood Urea Nitrogen 10 mg/dL (7-20) 8 mg/dL (7-20) Creatinine 0.8 mg/dL (0.6-1.0) 0.7 mg/dL (0.6-1.0) Estimated GFR (Cockcroft-Gault) 73.4 85.6 BUN/Creatinine Ratio 13 (6-20) 11 (6-20) Glucose Level 136 mg/dL (70-99) 145 mg/dL (70-99) Calcium Level 9.6 mg/dL (8.5-10.1) 8.6 mg/dL (8.5-10.1) Magnesium Level 2.2 mg/dL (1.8-2.4) Total Bilirubin 1.0 mg/dL (0.2-1.0) 1.3 mg/dL (0.2-1.0) Aspartate Amino Transf (AST/SGOT) 20 U/L (15-37) 19 U/L (15-37) Alanine Aminotransferase (ALT/SGPT) 33 U/L (14-59) 25 U/L (14-59) Alkaline Phosphatase 125 U/L (46-116) 113 U/L (46-116) Troponin I Quantitative < 0.017 ng/mL (0.000-0.055) Total Protein 7.0 g/dL (6.4-8.2) 6.5 g/dL (6.4-8.2) Albumin 4.1 g/dL (3.4-5.0) 3.4 g/dL (3.4-5.0) Albumin/Globulin Ratio 1.4 (1.0-1.7) 1.1 (1.0-1.7) Glucose (Fingerstick) 141 mg/dL (70-99) Laboratory Tests Test 02/04/20 11:51 02/04/20 12:13 02/05/20 07:10 02/05/20 07:26 Urine Collection Type Unknown Urine Color Yellow Urine Clarity Clear Urine pH 7.5 (<5.0-8.0) Urine Specific [place] 1.015 (1.000-1.030) Urine Protein 100 mg/dL (NEG-TRACE) Urine Glucose (UA) Negative mg/dL (NEG) Urine Ketones (Stick) Negative mg/dL (NEG) Urine Blood Negative (NEG) Urine Nitrite Negative (NEG) Urine Bilirubin Negative (NEG) Urine Urobilinogen Dipstick 0.2 mg/dL (0.2 mg/dL) Urine Leukocyte Esterase Negative (NEG) Urine RBC 6-10 /HPF (0-2) Urine WBC 5-10 /HPF (0-4) Urine Squamous Epithelial Cells Few /LPF Urine Bacteria 0 /HPF (0-FEW) Urine Hyaline Casts Moderate /HPF Urine Mucus Mod /LPF White Blood Count 9.5 x10^3/uL (4.0-11.0) 8.1 x10^3/uL (4.0-11.0) Red Blood Count 4.98 x10^6/uL (3.50-5.40) 4.65 x10^6/uL (3.50-5.40) Hemoglobin 16.2 g/dL (12.0-15.5) 15.2 g/dL (12.0-15.5) Hematocrit 45.1 % (36.0-47.0) 41.9 % (36.0-47.0) Mean Corpuscular Volume 91 fL (79-100) 90 fL (79-100) Mean Corpuscular Hemoglobin 33 pg (25-35) 33 pg (25-35) Mean Corpuscular Hemoglobin Concent 36 g/dL (31-37) 36 g/dL (31-37) Red Cell Distribution Width 12.5 % (11.5-14.5) 12.4 % (11.5-14.5) Platelet Count 217 x10^3/uL (140-400) 184 x10^3/uL (140-400) Neutrophils (%) (Auto) 66 % (31-73) 69 % (31-73) Lymphocytes (%) (Auto) 24 % (24-48) 21 % (24-48) Monocytes (%) (Auto) 8 % (0-9) 8 % (0-9) Eosinophils (%) (Auto) 2 % (0-3) 1 % (0-3) Basophils (%) (Auto) 1 % (0-3) 0 % (0-3) Neutrophils # (Auto) 6.2 x10^3/uL (1.8-7.7) 5.6 x10^3/uL (1.8-7.7) Lymphocytes # (Auto) 2.2 x10^3/uL (1.0-4.8) 1.7 x10^3/uL (1.0-4.8) Monocytes # (Auto) 0.8 x10^3/uL (0.0-1.1) 0.7 x10^3/uL (0.0-1.1) Eosinophils # (Auto) 0.2 x10^3/uL (0.0-0.7) 0.1 x10^3/uL (0.0-0.7) Basophils # (Auto) 0.1 x10^3/uL (0.0-0.2) 0.0 x10^3/uL (0.0-0.2) Sodium Level 141 mmol/L (136-145) 141 mmol/L (136-145) Potassium Level 3.9 mmol/L (3.5-5.1) 3.5 mmol/L (3.5-5.1) Chloride Level 103 mmol/L (98-107) 104 mmol/L (98-107) Carbon Dioxide Level 26 mmol/L (21-32) 27 mmol/L (21-32) Anion Gap 12 (6-14) 10 (6-14) Blood Urea Nitrogen 10 mg/dL (7-20) 8 mg/dL (7-20) Creatinine 0.8 mg/dL (0.6-1.0) 0.7 mg/dL (0.6-1.0) Estimated GFR (Cockcroft-Gault) 73.4 85.6 BUN/Creatinine Ratio 13 (6-20) 11 (6-20) Glucose Level 136 mg/dL (70-99) 145 mg/dL (70-99) Calcium Level 9.6 mg/dL (8.5-10.1) 8.6 mg/dL (8.5-10.1) Magnesium Level 2.2 mg/dL (1.8-2.4) Total Bilirubin 1.0 mg/dL (0.2-1.0) 1.3 mg/dL (0.2-1.0) Aspartate Amino Transf (AST/SGOT) 20 U/L (15-37) 19 U/L (15-37) Alanine Aminotransferase (ALT/SGPT) 33 U/L (14-59) 25 U/L (14-59) Alkaline Phosphatase 125 U/L (46-116) 113 U/L (46-116) Troponin I Quantitative < 0.017 ng/mL (0.000-0.055) Total Protein 7.0 g/dL (6.4-8.2) 6.5 g/dL (6.4-8.2) Albumin 4.1 g/dL (3.4-5.0) 3.4 g/dL (3.4-5.0) Albumin/Globulin Ratio 1.4 (1.0-1.7) 1.1 (1.0-1.7) Glucose (Fingerstick) 141 mg/dL (70-99) Brief Hospital Course 59-year-old female with a history of diabetes and hypertension who has recently been noncompliant with her blood pressure medicine who presents with a several day history of severe right sided lower abdominal discomfort, 10 out of 10, radiates to her right flank, aching in nature, and denies any associated shortness of breath or nausea vomiting she does complain of headaches. There are no exacerbating or alleviating factors. Denies hematuria, diarrhea, chest pain, or vision changes ED course: Patient had elevated blood pressures in the systolics of 200s. Therefore, she was started on Cardizem drip and she was transferred to [facility] for close management. A/P Hypertensive crisis Erythrocytosis due to likely volume depletion Medical noncompliance Right ureterolithiasis with hydronephrosis Diabetes Hypertension Elevated alkaline phosphatase suggestive for fatty liver disease PLAN placed on cardene drip with improvement in BP started on norvasc and lisinopril with BP improvement all labs stable SBP 150s at time of discharge patient has no complaints patient does have 5 mm Right ureterolithiasis with hydronephrosis. will recommend repeat US in 2 weeks to confirm resolution. needs urology follow up. needs repeat BMP in 1-2 weeks since starting RUTH-I patient without pain or discomfort at time of discharge. Strain urine for kidney stones Strict I's and O's Lovenox for DVT prophylaxis Regular diet Full code Discussed with RN Dispo Home when BP is controlled Discharge Information Condition at Discharge: Improved Follow Up: Weeks (PCP and Urology in 2 weeks) Disposition/Orders: D/C to Home Scheduled Amlodipine Besylate (Amlodipine Besylate) 10 Mg Tablet, 10 MG PO QHS for htn for 30 Days, #30 Ref 1 Prescribed by: CARMITA LORENZO MD on 02/05/20 0944 Atorvastatin Calcium (Atorvastatin Calcium) 10 Mg Tablet, 1 TAB PO DAILY for high cholesterol, #30 Ref 5 (Reported) Entered as Reported by: NICOL BEE on 02/04/201906 Last Action: Continued on 02/04/201907 by NICOL BEE Citalopram Hydrobromide (Citalopram Hbr) 10 Mg Tablet, 5 MG PO DAILY for depression, (Reported) Entered as Reported by: NICOL BEE on 02/04/201826 Last Taken: Unknown Dose on Unknown Date & Time Last Action: Continued on 02/04/201907 by NICOL BEE Lisinopril (Lisinopril) 40 Mg Tablet, 20 MG PO DAILY for htn for 30 Days, #15 Prescribed by: CARMITA LORENZO MD on 02/05/20 0944 Metformin Hcl (Metformin Hcl Er) 1,000 Mg Tab.er.24, 1,000 MG PO DAILYWBKFT for ANTI-DIABETIC, Ref 0 (Reported) Entered as Reported by: NICOL BEE on 02/04/201826 Last Taken: Unknown Dose on Unknown Date & Time Last Action: New Order on 02/04/201826 by NICOL BEE Justicifation of Admission Dx: Justifications for Admission: Justification of Admission Dx: Yes Hypertension: Cresendo Worsening of Sym CARMITA LORENZO MD Feb 05, 2020 09:49
--- NOTE | 2020-02-05 11:50 | NUR ---
Discharge Note: TESS ROLLE Discharge instructions and discharge home medications reviewed with Patient and a copy given. All questions have been answered and understanding verbalized.
--- NOTE | 2020-02-06 09:32 | EKG ---
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
== END 2020-02-05 12:21 | disposition home or self-care (01) ==
LOC: ER 11:39 → 2 NORTH 14:08
PROVIDERS: ADMIT Internal Medicine; ATTEND Internal Medicine
DX: I16.1 Hypertensive emergency (principal); N13.2 Hydronephrosis with renal and ureteral calculous obstruction; E11.9 Type 2 diabetes mellitus without complications; D75.1 Secondary polycythemia; I10 Essential (primary) hypertension; F17.200 Nicotine dependence, unspecified, uncomplicated; R51 Headache; K76.0 Fatty (change of) liver, not elsewhere classified; F32.9 Major depressive disorder, single episode, unspecified; Z90.710 Acquired absence of both cervix and uterus
CPT/HCPCS: 36415; 74177; 80053; 81001; 82962; 83735; 84484; 85025; 87086; 93005; 96365; 96366; 96372; 96375; 96376; 99291; G0378; J1650; J1815; J1885; J2405; J3010; J3490; J7030; J7050; Q9967; G0379

== ENCOUNTER 2020-02-09 11:59 | Emergency (ER) | payer OTHER ==
[~2020-02-09] VITALS: Ht 152.4 cm; Wt 67.0 kg
[~2020-02-09 11:59] MED LIST: AMLO10TA8 PO; ATOR10TA60 PO; CITA10TA4 PO; LISI-130 PO; METF100010 PO
[2020-02-09 12:10] VITALS: BP 126/79
--- NOTE | 2020-02-09 12:11 | PHYS DOC ---
Past Medical History Past Medical History: Anxiety, Depression, Diabetes-Type II, Hypertension Additional Past Medical Histor: "fatty liver" Past Surgical History: Hysterectomy, Other Additional Past Surgical Histo: R FOOT Smoking Status: Former Smoker Alcohol Use: None Drug Use: None General Adult EDM: Chief Complaint: UPPER EXTREMITY PAIN HPI: HPI: 59-year-old female presenting the emergency department today with pain and swelling in the vein where she had an IV a few days ago. It is a mild throbbing aching pain is nonradiating. She denies any deeper pain or migration of the rash she does have a little bit of redness around the area. Review of systems negative for chest pain shortness of breath vomiting fevers chills. All other review of systems negative. ED course: 59-year-old female presenting the emergency department today with superficial thrombophlebitis. We will have the patient take [id number] NSAIDs such as aspirin for the next 5 days daily along with ice and compression to follow-up with her doctor in 1 to 2 days. She is to draw a kaltag around the erythematous region daily and to return if her symptoms worsen or her rash worsens. The patient was then discharged home in stable condition to follow up with their primary care physician over the next 1-2 days. They were to return if their symptoms worsened or if they were concerned for any reason. They were also instructed to return to the emergency department if they were unable to get the recommended and appropriate follow-up. Egre-[id number]-[id number] discharge instructions and return precautions were given. Patient's questions were answered to their satisfaction. Patient is comfortable with plan. Heart Score: Risk Factors: Risk Factors: DM, Current or recent (<one month) smoker, HTN, HLP, family history of CAD, obesity. Risk Scores: Score 0 - 3: 2.5% MACE over next 6 weeks - Discharge Home Score 4 - 6: 20.3% MACE over next 6 weeks - Admit for Clinical Observation Score 7 - 10: 72.7% MACE over next 6 weeks - Early Invasive Strategies Allergies: Allergies: Allergies Coded Allergies Type Severity Reaction Last Updated Verified morphine Allergy Intermediate itchy 05/31/15 No Physical Exam: PE: Constitutional: Well developed, well nourished, no acute distress, non-toxic appearance. [] HENT: Normocephalic, atraumatic, bilateral external ears normal, oropharynx moist, no oral exudates, nose normal. [] Eyes: PERRLA, EOMI, conjunctiva normal, no discharge. [] Neck: Normal range of motion, no tenderness, supple, no stridor. [] Cardiovascular:Heart rate regular rhythm, no murmur [] Lungs & Thorax: Bilateral breath sounds clear to auscultation [] Abdomen: Bowel sounds normal, soft, no tenderness, no masses, no pulsatile masses. [] Skin: The patient has a mildly erythematous superficial thrombophlebitis of the right forearm. No tenderness of the deep venous system of the arm. The hand is not swollen. Palpable pulse distally with 2-second up refill. Back: No tenderness, no CVA tenderness. [] Extremities: No tenderness, no cyanosis, no clubbing, ROM intact, no edema. [] Neurologic: Alert and oriented X 3, normal motor function, normal sensory function, no focal deficits noted. [] Psychologic: Affect normal, judgement normal, mood normal. [] EKG: EKG: [] Radiology/Procedures: Radiology/Procedures: [] Course & Med Decision Making: Course & Med Decision Making Pertinent Labs and Imaging studies reviewed. (See chart for details) [] Dragon Disclaimer: PaperV Disclaimer: This electronic medical record was generated, in whole or in part, using a voice recognition dictation system. Departure Departure Impression: Primary Impression: Superficial thrombophlebitis Disposition: 01 HOME, SELF-CARE Condition: STABLE Referrals: SANTI ORTEGA MD (PCP) Additional Instructions: hat is superficial vein phlebitis/thrombosis? "Superficial vein phlebitis" and "superficial vein thrombosis" are medical terms for problems with the veins that are close to the surface of the skin (called the superficial veins): ?Superficial vein phlebitis is when the veins get inflamed. ?Superficial vein thrombosis is when blood clots form in the veins. If both problems happen, it is called "superficial vein thrombophlebitis." Superficial vein phlebitis/thrombosis is related to another vein problem called "deep vein thrombosis" or "DVT." DVT is when a vein located deep in the body gets inflamed or becomes clotted. DV T can be very dangerous because clots within a deep vein can break off and travel to the lungs, causing something called a "pulmonary embolism." But DVT is different from superficial vein phlebitis/thrombosis, which affects veins near the surface of the skin. Is superficial vein phlebitis/thrombosis dangerous? Superficial vein phlebitis is not usually dangerous. But with superficial vein thrombosis, clots in a superficial vein can extend into a deep vein causing DVT, or break off, causing pulmonary embolism. For these reasons, superficial vein thrombosis is taken very seriously, especially when it affects the thigh or upper arm, where superficial and deep veins meet. How does superficial vein phlebitis/thrombosis relate to other vein problems? People who get superficial vein phlebitis/thrombosis often also have a type of vein disease called "venous insufficiency." Venous insufficiency can occur with or without varicose veins (twisted, swollen veins), and most often affects the legs. When the veins are healthy and working normally, they carry blood in only 1 direction, from the arms and legs back to the heart. Veins have valves inside them to keep blood moving toward the heart. The valves open to let blood flow to the heart, and close to keep blood from flowing backwards. When the valves are damaged or do not work well, blood flows backward and collects in the veins. This is called venous insufficiency. People without venous insufficiency can also get superficial vein phlebitis/thrombosis. This usually happens after having an intravenous catheter, which is a tube that goes into a vein to give medicines. But even people who had nothing put into a vein can get superficial vein phlebitis/thrombosis. For instance, it can happen to people with blood clotting problems or cancer. What are the symptoms of superficial vein phlebitis/thrombosis? The symptoms include: ?Pain, tenderness, or redness along the length of a vein ?Hardening of the vein ?Fever ?Fluid draining from the area where a catheter was put in ?Swelling of the affected arm or leg Should I see a doctor or nurse? Yes, if you have symptoms of superficial vein phlebitis/thrombosis, see your doctor or nurse. See him or her right away if the affected arm or leg is swollen, or if the affected vein is in the thigh or upper arm. Call for an ambulance (in the [place] and [place], dial [id number]) if you get symptoms of a blood clot in the lungs, such as: ?Panting or trouble breathing ?Sharp, knife-like chest pain when you breathe in ?Coughing or coughing up blood ?A rapid heartbeat Will I need tests? Maybe. Your doctor or nurse might be able to tell what is happening by doing an exam and learning about your symptoms. He or she might also do a test called an ultrasound. An ultrasound will show if any of the veins are blocked, especially the deep veins. It can also check how well the valves in the veins work. In some cases, your doctor might order blood tests. How is superficial vein phlebitis/thrombosis treated? The treatment for superficial vein phlebitis/thrombosis focuses on easing the symptoms. To do this, doctors recommend that you: ?Use heating or cooling pads on the affected area ?Raise the arm or leg, propping it up on pillows or a chair when resting ?Take a medicine called an NSAID Examples include ibuprofen (sample brand names: Advil, Motrin) and naproxen (sample brand names: Aleve, Naprosyn) If your superficial vein phlebitis/thrombosis is near where you have (or had) an intravenous catheter, your doctor will check for infection. If you do have an infection, you might need antibiotics. If superficial vein phlebitis/thrombosis is in your leg, your doctor or nurse might also suggest you wear compression stockings. These are special socks that fit tightly over the ankle and leg. If your doctor or nurse recommends them, he or she will tell you which type to wear and how to put them on. Some people do not need treatment beyond what is described above. In some cases where superficial vein thrombosis is near the deep veins, doctors will prescribe an anti-clotting medicine (sometimes called a "blood thinner"). This helps prevent more clots from forming. Can superficial vein phlebitis/thrombosis be prevented? You can reduce your chances of getting superficial vein phlebitis/thrombosis in the leg veins by staying active and not sitting too long without moving. If your doctor needs to use a catheter to give you medicine through a vein in your arm, this can sometimes lead to superficial vein phlebitis/thrombosis. Your doctor can lower this risk by removing the catheter as soon as it is no longer needed. Justicifation of Admission Dx: Justifications for Admission: Justification of Admission Dx: N/A Hypertension: Cresendo Worsening of Sym VERONICA ROACH MD Feb 09, 2020 12:11
== END 2020-02-09 13:24 | disposition home or self-care (01) ==
LOC: ER 11:59
DX: I80.8 Phlebitis and thrombophlebitis of other sites (principal); E11.9 Type 2 diabetes mellitus without complications; I10 Essential (primary) hypertension; F32.9 Major depressive disorder, single episode, unspecified; F41.9 Anxiety disorder, unspecified; Z87.891 Personal history of nicotine dependence; Z88.5 Allergy status to narcotic agent
CPT/HCPCS: 99281